=== PATIENT | male | born 1965 | race Caucasian/White ===

== ENCOUNTER → 2016-05-04 | Outpatient (CLI) | payer BC, MEDICAID ==
--- NOTE | 2016-05-04 14:33 | PN ---
DATE OF SERVICE: 05/04/2016 A 51-year-old gentleman who has been followed in the Sleep Center for treatment of obstructive sleep apnea-hypopnea syndrome. During previous visit, I increased pressure in his CPAP unit and because it was some problem with his unit, patient received new CPAP unit. At the present time, he continued to use his CPAP equipment every night for the whole night. No snoring with the machine. He feels well during the day. [place] Sleepiness Scale is 4. He feels that with the new unit he feels much more comfortable and sleeps much better. I checked his CPAP unit. CPAP pressure is 9 cm of water. Therapy hours for 30 days, 6.4 hours average per night. MEDICATIONS: Pravastatin. During physical exam, patient in no distress. BP 131/78, HR 64, RR 16. Weight 252. Temp 97.6, oxygen saturation at room air 98%. HEENT: PERRLA, EOMI. LUNGS: Clear. HEART: S1, S2 regular. ABDOMEN: Obese, soft, nontender. EXTREMITIES: No edema. TACTICAL DECEPTION PLANS OFFICER: No focal deficit. IMPRESSION: 1. Obstructive sleep apnea-hypopnea syndrome on control with CPAP at 9 cm of water. Patient benefiting from the machine, demonstrated great compliance with treatment. 2. Obesity. 3. Hypertension. 4. Hyperlipidemia. 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 6. Some restriction of nasal breathing. PLAN: 1. Continue treatment with CPAP every night for the whole night. 2. Losing weight program. 3. Sleep hygiene with regular time in bed for at least 8 hours. 4. No driving if feeling any sleepiness. 5. Prescription for all necessary CPAP supplies. Thank you very much for allowing me to participate in the management of your patient. A followup visit in one year. Sincerely, Darin Lay MD, PhD, FAASM. Diplomat of [place] [employer], Sleep Medicine Board by [place] [employer] [place] [employer] Manager Plan of [facility] [place]
== END | disposition home or self-care (01) ==
LOC: SLEEP 10:20
PROVIDERS: ATTEND Internal Medicine
DX: G47.33 Obstructive sleep apnea (adult) (pediatric) (principal); E66.9 Obesity, unspecified; I10 Essential (primary) hypertension; E78.5 Hyperlipidemia, unspecified; Z79.899 Other long term (current) drug therapy

== ENCOUNTER → 2016-10-31 | Outpatient (CLI) | payer BC, MEDICAID ==
--- NOTE | 2016-10-31 08:15 | US ---
EXAMINATION TYPE: US abdomen limited DATE OF EXAM: 10/31/2016 COMPARISON: CT abdomen pelvis December 16, 2015 CLINICAL HISTORY: R10.11 rt upper quadrant pain. EXAM MEASUREMENTS: Liver Length: 13.1 cm Gallbladder Wall: 0.2 cm CBD: 0.4 cm Right Kidney: 10.8 x 5.3 x 5.8 cm technically difficult exam, limited vis of left lobe of liver, right lobe difficult to penetrate Pancreas: not well visualized Liver: difficult to penetrate Gallbladder: No stones seen Evidence for sonographic Perea's sign: No CBD: wnl Right Kidney: No hydronephrosis or masses seen Visualized pancreas is unremarkable. Visualized liver is heterogeneous in appearance consistent with diffuse fatty infiltration. 2.5 cm low dense lesion near interlobar fissure felt to reflect thin-wall ed cyst on CT is less well-seen on ultrasound. Gallbladder is identified without shadowing mobile gal lstones, abnormal surrounding fluid, or abnormal gallbladder wall thickening. IMPRESSION: Suboptimal study but no gallstones or ultrasound evidence for acute cholecystitis.
== END | disposition home or self-care (01) ==
LOC: RADUSWWP 06:59
PROVIDERS: ATTEND Student in an Organized Health Care Education/Training Program
DX: R10.11 Right upper quadrant pain (principal)
CPT/HCPCS: 76705

== ENCOUNTER → 2016-11-13 | Outpatient (CLI) | payer BC, MEDICAID ==
--- NOTE | 2016-11-13 08:12 | CT ---
EXAMINATION TYPE: CT abdomen pelvis wo con DATE OF EXAM: 11/13/2016 COMPARISON: 12/16/2015 HISTORY: Abdominal pain CT DLP: 1437.2 mGycm Automated exposure control for dose reduction was used. TECHNIQUE: Helical acquisition of images was performed from the lung bases through the pelvis. FINDINGS: LUNG BASES: No significant abnormality is appreciated. LIVER/GB:2.5 cm fluid attenuating lesion within segment 4 of the left hepatic lobe suggestive of a cy st. PANCREAS: No significant abnormality is seen. SPLEEN: No significant abnormality is seen. ADRENALS: No significant abnormality is seen. KIDNEYS: No significant abnormality is seen. URINARY BLADDER: No significant abnormality is seen. ADENOPATHY: None visualized. OSSEOUS STRUCTURES: Hypertrophic and degenerative change spine. Scoliotic curvature noted. BOWEL: No significant abnormality is seen. OTHER: Aorta of normal caliber. Prostate mildly enlarged. IMPRESSION: STABLE HEPATIC CYST
== END | disposition home or self-care (01) ==
LOC: RADCTMAIN 07:00
PROVIDERS: ATTEND Family Medicine
DX: K76.89 Other specified diseases of liver (principal)
CPT/HCPCS: 74176

== ENCOUNTER → 2016-12-13 | Outpatient (CLI) | payer BC, MEDICAID ==
--- NOTE | 2016-12-14 22:12 | ENG ---
ELECTRONYSTAGMOGRAM REPORT VIDEO-ASSISTED ELECTRONYSTAGMOGRAPHIC REPORT: VNG INDICATIONS: Dizziness with vertigo and lightheadedness starting one month ago, sudden onset, improving in condition. Dizziness comes in spells. Dizziness can be precipitated by positional changes, including rolling over in bed, left or right. Patient denies any difficulty with hearing. She has steady tinnitus in both ears and a fullness in both ears. VNG FINDINGS: SACCADES: Saccades shows intact peak velocities, accuracies and latencies. GAZE TEST: Gaze with fixation shows no nystagmus in any of the directions of gaze, including centrally with vision denied. SINUSOIDAL TRACKING: Tracking shows no breakups. OKN TEST: Opticokinetic nystagmus shows no asymmetries at faster or slower speeds. BAKARI-HALLPIKE TEST: [place]-Hallpike maneuvers are negative bilaterally. POSITION TEST: Static position testing in 6 different positions, both with eyes opened and with vision denied, shows no nystagmus. CALORIC TEST: Caloric testing shows a 33% unilateral left caloric weakness with directional preponderance of 8% right ear and normal fixation index. IMPRESSION: VNG test results are consistent with a well-compensated, mild left vestibulopathy. Other features of testing are unremarkable. MMODL / IJN: [id number] /
== END ==
LOC: NEUROMAIN 08:51
PROVIDERS: ATTEND Otolaryngology
DX: R42 Dizziness and giddiness (principal)
CPT/HCPCS: 92537; 92540

== ENCOUNTER → 2018-05-09 | Outpatient (CLI) | payer BC, MEDICAID ==
--- NOTE | 2018-05-09 11:05 | SFUN ---
SLEEP CENTER FOLLOW UP NOTE DATE OF SERVICE: 05/09/2018 This 53-year-old gentleman had been followed up in sleep center for treatment of obstructive sleep apnea-hypopnea syndrome. Patient successfully continuing to use his CPAP equipment every night without significant problems related to mask fitting, pressure or humidifications. No snoring during the sleep. [place] Sleepiness Scale is 4. I checked his CPAP unit. CPAP pressure 9 cm of water. Usage is 100% of the time more than 4 hours. Average usage is 7.8 hours per night. Mask fitting 99% according to reading from the machine. Apnea-hypopnea index 3.8, which is normal range. MEDICATIONS: Pravastatin. PHYSICAL EXAMINATION: During physical exam, patient in no distress. VITAL SIGNS: BP 144/96, HR 60, RR 16, height 5 feet 4 inches, weight 252 pounds, body mass index 43.2, temperature 97.5, oxygen saturation at room air 98%. HEENT: PERRLA, EOMI. Oropharynx low position of soft palate. NECK: Supple, no JVD. Thyroid is not palpable. LUNGS: Clear to percussion and to auscultation. Good air exchange. No wheezing or rhonchi. HEART: S1, S2 regular. No murmurs, gallops, or rubs. ABDOMEN: Obese. EXTREMITIES: No clubbing or cyanosis. SACK REPAIRER: Awake, alert, and oriented X3. Cranial nerves 2 to 7 intact. There is no fasciculation or atrophy. noted. No focal deficits observed. IMPRESSION: 1. Obstructive sleep apnea-hypopnea syndrome. The patient demonstrated 100% compliance with treatment benefitting from treatment normal aspiration on the pressure at 9 cm of water. 2. Obesity. 3. Hyperlipidemia. 4. History of hypertension. PLAN: 1. Patient will continue to use CPAP equipment every night for the whole night with the same pressure. 2. Continue losing weight. 3. Sleep hygiene with regular time in bed for 7-1/2 to 8 hours. 4. No driving if feeling sleepiness. 5. I will maintain all necessary prescription for CPAP supplies including mask, tube, filters. 6. Followup visit in 1 year or earlier if patient has any problems. Thank you very much for allowing me to participate in management of your patient. Sincerely, Darin Lay MD, PhD, FAASM Diplomat of [place] [employer] [place] [employer] Medicine Board Certified Arts Therapist of [facility] [place] MMBARTOLOL / IRENEN: [id number] /
== END ==
LOC: SLEEP 09:56
PROVIDERS: ATTEND Internal Medicine
DX: G47.33 Obstructive sleep apnea (adult) (pediatric) (principal); E66.9 Obesity, unspecified; E78.5 Hyperlipidemia, unspecified; I10 Essential (primary) hypertension; Z99.89 Dependence on other enabling machines and devices; Z79.899 Other long term (current) drug therapy

== ENCOUNTER → 2020-10-04 | Outpatient (CLI) | payer BC | END | disposition home or self-care (01) | LOC: RADCTMAIN 06:03 | PROVIDERS: ATTEND Neurological Surgery | DX: Z53.9 Procedure and treatment not carried out, unspecified reason (principal) ==

== ENCOUNTER → 2020-10-04 | Outpatient (CLI) | payer BC ==
--- NOTE | 2020-10-04 08:53 | CT ---
EXAMINATION TYPE: CT lumbar spine wo con DATE OF EXAM: 10/04/2020 6:40 AM COMPARISON: None HISTORY: Patient having low back pain for years.No injury CT DLP: 1783.5 mGycm Automated exposure control for dose reduction was used. Unenhanced CT of the lumbar spine was performed. Bone and soft tissue window settings are submitted as well as coronal and sagittal reconstructions. L1-L2: Normal disc space height. No disc herniation protrusion or central stenosis. No facet joint arthropathy. No evidence for foraminal encroachment. L2-L3: Normal disc space height. No disc herniation protrusion or central stenosis. No facet joint arthropathy. No evidence for foraminal encroachment. L3-L4: Moderate disc desiccation posterior disc bulge with effacement ventral thecal sac. Mild centra l stenosis. Mild foraminal encroachment. L4-L5: Grade 1 anterolisthesis L4 and L5-3 millimeters. Moderate disc desiccation with posterior disc bulge. Hypertrophy ligamentum flavum and facet joint arthropathy contribute to moderate central sten osis. Vacuum changes of the facet joints. L5-S1: Moderate disc desiccation. Mild posterior disc bulge. Right lateral recess stenosis. No centra l stenosis or disc herniation. Left greater than right foraminal encroachment IMPRESSION: Multilevel degenerative disc disease and central stenosis as noted above.
--- NOTE | 2020-10-05 04:04 | MR ---
EXAMINATION TYPE: MR lumbar spine wo con DATE OF EXAM: 10/04/2020 COMPARISON: None HISTORY: Low back pain into buttocks Multiplanar multiecho imaging of the lumbar spine without contrast. Vertebra have fairly normal alignment. There is mild decreased signal and narrowing in the disks from L1 to 2 S1. There is no compression fracture. There is mild posterior disc bulging at L3-4 L4-5. The re is hypertrophic facet arthropathy at L4-5. There is resultant moderate spinal stenosis. There is d evelopmentally small spinal canal. Lumbar nerve roots appear intact. There is no lumbar paraspinal ma ss. There is no compression fracture. I see no focal bone destruction. Sacroiliac joints are intact. There is bilateral L4-5 neural foraminal narrowing due to the disc space narrowing and facet arthropa thy. IMPRESSION: Posterior central mild disc herniation at L4-5. L4-5 facet arthropathy and mild to moderate spinal st enosis. No fracture. Minimal posterior disc bulge at L3-4.
== END | disposition home or self-care (01) ==
LOC: RADMRIMAIN 06:09
PROVIDERS: ATTEND Neurological Surgery
DX: M48.061 Spinal stenosis, lumbar region without neurogenic claudication (principal); M51.16 Intervertebral disc disorders with radiculopathy, lumbar region; M47.26 Other spondylosis with radiculopathy, lumbar region; M99.73 Connective tissue and disc stenosis of intervertebral foramina of lumbar region
CPT/HCPCS: 72131; 72148

== ENCOUNTER → 2021-01-26 | Outpatient (CLI) | payer BC ==
--- NOTE | 2021-01-26 14:05 | SFUN ---
SLEEP CENTER FOLLOW UP NOTE DATE OF SERVICE: 01/26/2021 55-year-old gentleman has been followed in Sleep Center for treatment of obstructive sleep apnea-hypopnea syndrome. Previously I saw patient in April of 2018 close to 3 years. Patient continued to use his CPAP equipment every night. Recently, he received a letter from [employer] that his machine was on recall. He stopped using it for 2 weeks but feels worse and restarted to using it again. [place] Sleepiness Scale today is 6, which is normal. I checked his CPAP unit, pressure is 9 cm of water. Mask fit 100%. Average usage 5.6 hours per night. The patient has good compliance. Apnea-hypopnea index 3.5, which is normal. MEDICATIONS: Losartan 100 mg once a day, pravastatin 40 mg once every other day. PHYSICAL EXAMINATION: GENERAL: Patient in no distress. BP 140/91, HR 66, RR 15, height 5 feet 3-3/4 inches, weight 247.4 pounds, body mass index 42.7. The patient lost about 5 pounds since previous visit. Temperature 97.7, oxygen saturation at room air 97%. Oropharynx: Low position of soft palate. NECK: Supple, no JVD. Thyroid is not palpable. LUNGS: Clear to percussion and to auscultation. Good air exchange. No wheezing or rhonchi. HEART: S1, S2 regular. No murmurs, gallops, or rubs. ABDOMEN: Obese. Soft and nontender. Bowel sounds are present. No organomegaly appreciated. EXTREMITIES: No clubbing or cyanosis. INTERACTIVE PRODUCER: Awake, alert, and oriented X3. Cranial nerves 2 to 7 intact. There is no fasciculation or atrophy. noted. No focal deficits observed. IMPRESSION: 1. Obstructive sleep apnea-hypopnea syndrome. Patient demonstrated good compliance with treatment, benefitting from treatment. The patient has a [facility] 1 CPAP unit which was on recall. When patient stopped using CPAP equipment, he feels worse. 2. Obesity. 3. Hyperlipidemia. 4. Hypertension. PLAN: 1. Prescription to replace CPAP unit was written and faxed. A prescription for all necessary CPAP supplies. 2. Patient will continue to use PAP equipment every night for the whole night. 3. Sleep hygiene with regular time in bed for at least 7-1/2 to 8 hours. 4. Precautions related to driving. No driving if feeling sleepiness. 5. I will maintain all necessary prescription for PAP supplies including mask, tube, filters. 6. Watching weight. 7. Follow-up visit in 6 months or earlier if patient has any problems. Thank you very much for allowing me to participate in the management of your patient. Sincerely, Darin Lay MD, PhD, FAASM Diplomat of [place] [employer] Specialties Sleep Medicine Board of [place] Board of Internal Medicine Hospital Laboratory Technician of [facility] [place] MMODL / IRENEN: [id number] /
== END ==
LOC: SLEEP 11:48
PROVIDERS: ATTEND Internal Medicine
DX: G47.33 Obstructive sleep apnea (adult) (pediatric) (principal); E66.9 Obesity, unspecified; E78.5 Hyperlipidemia, unspecified; I10 Essential (primary) hypertension; Z99.89 Dependence on other enabling machines and devices; Z68.41 Body mass index [BMI] 40.0-44.9, adult; Z79.899 Other long term (current) drug therapy

== ENCOUNTER → 2021-05-09 | Outpatient (CLI) | payer BC ==
--- NOTE | 2021-05-09 11:23 | MR ---
EXAMINATION TYPE: MR knee LT wo con DATE OF EXAM: 05/09/2021 COMPARISON: None HISTORY: Lt knee pain TECHNIQUE: Multiplanar, multisequence imaging of the left knee is performed without IV contrast. FINDINGS: Diffuse marrow edema involving the medial tibial plateau. There is subtle linear area of ab normal signal involving the medial tibial no suspicious for a minimally depressed medial tibial plate au fracture. Arthropathy is incidentally noted. Involving the tricompartment joint spaces is incidentally noted. T here is subcutaneous soft tissue edema. There is a large popliteal fossa cyst measuring 4.2 x 2 x 6 c m. Anterior cruciate and posterior cruciate ligaments are intact. Medial collateral and lateral collater al ligaments intact. The lateral meniscus has a normal appearance. There is a grade 3 abnormal signal involving the supervisor personnel clerks ior horn and body of the medial meniscus compatible with tear. There is fibrillation and chondromalacia involving the articular portion of the medial femur. Patellar and quadriceps tendons intact. There is thinning of the patellar cartilage compatible with c hondromalacia and there is a tremendous amount of fluid in the suprapatellar bursa. Edema in Hoffa's fat pad suggests possibility of fat pad impingement syndrome. IMPRESSION: 1. Diffuse marrow edema involving the medial tibial plateau compatible with marrow edema. Suggestion of subtle depression of the medial margin of the tibial cortex and on the T1 image of a linear fractu re. Correlate clinically. 2. Posterior horn and body medial meniscal tear. 3. Large 6 cm popliteal fossa cyst. 4. Correlate for fat pad impingement syndrome.
== END | disposition home or self-care (01) ==
LOC: RADMRIMAIN 10:16
PROVIDERS: ATTEND Family Medicine
DX: M23.322 Other meniscus derangements, posterior horn of medial meniscus, left knee (principal); M71.22 Synovial cyst of popliteal space [Baker], left knee

== ENCOUNTER → 2021-05-16 | Outpatient (CLI) | payer BC | END | disposition home or self-care (01) | LOC: LABWHC1 10:46 | PROVIDERS: ATTEND Orthopaedic Surgery | DX: M23.332 Other meniscus derangements, other medial meniscus, left knee (principal); E55.9 Vitamin D deficiency, unspecified | CPT/HCPCS: 36415; 82306 ==

== ENCOUNTER → 2021-07-15 | Outpatient (CLI) | payer BC | END | disposition home or self-care (01) | LOC: LABWHC1 10:14 | PROVIDERS: ATTEND Orthopaedic Surgery | DX: M23.332 Other meniscus derangements, other medial meniscus, left knee (principal); M84.362D Stress fracture, left tibia, subsequent encounter for fracture with routine healing | CPT/HCPCS: 36415; 82306 ==

== ENCOUNTER → 2022-01-30 | Outpatient (CLI) | payer BC ==
--- NOTE | 2022-01-30 10:17 | NM ---
EXAMINATION TYPE: NM hepatobiliary w EF DATE OF EXAM: 01/30/2022 COMPARISON: Nuclear medicine HIDA scan 12/21/2015, abdominal ultrasound 10/31/2016. HISTORY: R10.11 RUQ pain TECHNIQUE: After the intravenous administration of 4.9 mCi Tc 99m Mebrofenin hepatobiliary scintigrap hy is performed. Immediate images post injection. FINDINGS: There is satisfactory initial accumulation of tracer by the liver. The gallbladder is visualized wit hin 30 minutes. The small bowel activity is noted within 10 minutes. At one hour 8 ounces of oral e nsure plus is given to mimic CCK and gallbladder ejection fraction is calculated at 62 %, in the norm al range. Therefore there is no scintigraphic evidence of cystic or common bile duct obstruction to suggest acute cholecystitis or gallbladder dyskinesia. IMPRESSION: Exam is within normal limits.
== END | disposition home or self-care (01) ==
LOC: RADNMMAIN 06:55
PROVIDERS: ATTEND Family Medicine
DX: R10.11 Right upper quadrant pain (principal)
CPT/HCPCS: 78226; A9537

== ENCOUNTER → 2022-03-09 | Outpatient (CLI) | payer BC ==
--- NOTE | 2022-03-09 11:36 | P.PN ---
Subjective DATE: 03/09/2022 FOLLOW UP VISIT. Patient with obstructive sleep apnea hypopnea syndrome return to sleep center for follow-up visit. Information from previous visit have been reviewed. Patient received new CPAP unit and this is first visit after he started to use new CPAP equipment. Patient is using PAP equipment every night for the whole night, getting PAP supplies in time. The patient does not have significant problems with the mask, PAP unit and humidification. [place] sleepiness scale is 6, which is normal. I checked information from PAP unit. PAP unit pressure 9 cm H2O. Usage is 70 % for more then 4 hours. Leak is 8 l/m, which is in acceptable range. Apnea Hypopnea Index is 2.7, which is normal. MEDICATIONS:1. Losartan 100 mg once a day 2. Pravastatin 40 mg once a day 3. Hydrochlorothiazide 25 mg once a day 4. Amlodipine 5 mg once a day During physical exam: GENERAL: A pleasant patient without any distress. VITAL SIGNS: BP 128 over 85, HR 78, RR 16, weight 257, temperature 98.0, oxygen saturation at room air 98 % . HEENT: PERRLA, EOMI.low position of soft palate, Mallapati 3 . NECK: Supple. No JVD. LUNGS: Clear to percussion and to auscultation. Good air exchange. No wheezing or rhonchi. HEART: S1, S2 regular. ABDOMEN: Soft and nontender. Obese EXTREMITIES: No clubbing or cyanosis. TAPER PRINTED CIRCUIT LAYOUT: Awake, alert, and oriented x3. No focal deficit. Impressions: 1. Obstructive sleep apnea-hypopnea syndrome. Patient demonstrated good compliance with treatment, benefiting from treatment. 2. Obesity, body mass index 44.9. 3. Hypertension. 4. Hyperlipidemia. Plan: 1. Continue using PAP equipment every night for the whole night. 2. To change air filter at least 1-2 times per month. 3. PAP unit should stay lower then position of the head. 4. Advised patient to remove all remaining water from humidifier canister daily and make it dry after each usage. Refill canister with fresh distilled water before each usage. 5. Sleep hygiene with regular time in bed for at least 8 hours. 6. Precautions related to driving. No driving if feel any sleepiness. 7. I will maintain prescription for PAP supplies including mask, tube, filters. 8. Follow up visit in 6 months or earlier if patient has any problems. 9. Watching and losing weight. Thank you very much for allowing me to participate in the management of your patient. Darin Lay MD, PhD, FAASM. Diplomat of [place] [employer] Sleep [employer], Sleep Medicine Board by [place] [employer] Medicine Public Health Outreach Worker of [facility] [place]
== END ==
LOC: SLEEP 10:53
PROVIDERS: ATTEND Internal Medicine
DX: G47.33 Obstructive sleep apnea (adult) (pediatric) (principal); Z99.89 Dependence on other enabling machines and devices; E66.9 Obesity, unspecified; Z68.41 Body mass index [BMI] 40.0-44.9, adult; I10 Essential (primary) hypertension; E78.5 Hyperlipidemia, unspecified; Z79.899 Other long term (current) drug therapy
CPT/HCPCS: 99212

== ENCOUNTER → 2022-10-04 | Outpatient (CLI) | payer BC ==
--- NOTE | 2022-10-04 11:47 | P.PN ---
Subjective DATE: 10/04/2022 FOLLOW UP VISIT. Patient with obstructive sleep apnea hypopnea syndrome return to sleep center for follow-up visit. Information from previous visit have been reviewed. Patient is using PAP equipment every night for the whole night, getting PAP supplies in time. The patient does not have significant problems with the mask, PAP unit and humidification. [place] sleepiness scale is 7, which is normal. I checked information from PAP unit. PAP unit pressure 9 cm H2O. Usage is 80 % for more then 4 hours, average 6.4 hours per night. Mask feet 100%. Apnea Hypopnea Index is slightly increased to 6.4, it was 2.7 during previous visit . MEDICATIONS:1. Pravastatin 40 mg once a day 2. Hydrochlorothiazide 25 mg once a day 3. Amlodipine 5 mg once a day 4. Losartan 100 mg once a day During physical exam: GENERAL: A pleasant patient without any distress. VITAL SIGNS: BP 109/74, HR 68, RR 12 , weight 263.4, temperature 97.3, oxygen saturation at room air 98 % . HEENT: PERRLA, EOMI.low position of soft palate, Mallapati 3 . NECK: Supple. No JVD. LUNGS: Clear to percussion and to auscultation. Good air exchange. No wheezing or rhonchi. HEART: S1, S2 regular. ABDOMEN: Soft and nontender. Obese EXTREMITIES: No clubbing or cyanosis. APPLICATIONS SUPPORT ENGINEER: Awake, alert, and oriented x3. No focal deficit. Impressions: 1. Obstructive sleep apnea-hypopnea syndrome. Patient demonstrated great compliance with treatment, benefiting from treatment. 2. Obesity, BMI 46.5, patient increased weight and 6 pounds comparing with previous visit. 3. Hypertension. 4. Hyperlipidemia. Plan: 1. Continue using PAP equipment every night for the whole night. I increased level of CPAP pressure to 11 cm of water. 2. To change air filter at least 1-2 times per month. 3. PAP unit should stay lower then position of the head. 4. Advised patient to remove all remaining water from humidifier canister daily and make it dry after each usage. Refill canister with fresh distilled water before each usage. 5. Sleep hygiene with regular time in bed for at least 8 hours. 6. Precautions related to driving. No driving if feel any sleepiness. 7. I will maintain prescription for PAP supplies including mask, tube, filters. 8. Follow up visit in 6 months or earlier if patient has any problems. 9. Watching weight. Thank you very much for allowing me to participate in the management of your patient. Darin Lay MD, PhD, FAASM. Diplomat of [place] [employer], Sleep Medicine Board by [place] [employer] Pasta Maker of [facility] [place]
== END ==
LOC: 3 N SLEEP 10:20
PROVIDERS: ATTEND Internal Medicine
DX: G47.33 Obstructive sleep apnea (adult) (pediatric) (principal); E66.9 Obesity, unspecified; I10 Essential (primary) hypertension; E78.5 Hyperlipidemia, unspecified; Z68.42 Body mass index [BMI] 45.0-49.9, adult; Z99.89 Dependence on other enabling machines and devices
CPT/HCPCS: 99212

== ENCOUNTER → 2023-04-11 | Outpatient (CLI) | payer BC ==
--- NOTE | 2023-04-11 10:53 | P.PN ---
Subjective DATE: 04/11/2023 FOLLOW UP VISIT. Patient with obstructive sleep apnea hypopnea syndrome return to sleep center for follow-up visit. Information from previous visit have been reviewed. Patient is using PAP equipment every night for the whole night, getting PAP supplies in time. The patient does not have significant problems with the mask, PAP unit and humidification. [place] sleepiness scale is 1, which is perfect. I checked information from PAP unit. PAP unit pressure 9 cm H2O. Usage is 100% for more then 4 hours, average 8.5 hours per night. Leak is 7.1 l/m, which is in acceptable range. Apnea Hypopnea Index is 3.2, which is normal. MEDICATIONS:1. Losartan 100 mg once a day 2. Hydrochlorothiazide 25 mg once a day 3. Amlodipine 5 mg once a day 4. Gabapentin 5. Pravastatin 40 mg once a day During physical exam: GENERAL: A pleasant patient without any distress. VITAL SIGNS: BP 108/73, HR 67, RR 12 , weight 234.6, temperature 97.5, oxygen saturation at room air 99 % . HEENT: PERRLA, EOMI.low position of soft palate, Mallapati 3 . NECK: Supple. No JVD. LUNGS: Clear to percussion and to auscultation. Good air exchange. No wheezing or rhonchi. HEART: S1, S2 regular. ABDOMEN: Soft and nontender.[] EXTREMITIES: No clubbing or cyanosis. HOG COOLER: Awake, alert, and oriented x3. No focal deficit. Impressions: 1. Obstructive sleep apnea-hypopnea syndrome. Patient demonstrated great compliance with treatment, benefiting from treatment. 2. Obesity, BMI 39.5, patient lost 29 pounds comparing his previous visit. 3. Hypertension. 4. Hyperlipidemia. Plan: 1. Continue using PAP equipment every night for the whole night. 2. To change air filter at least 1-2 times per month. 3. PAP unit should stay lower then position of the head. 4. Advised patient to remove all remaining water from humidifier canister daily and make it dry after each usage. Refill canister with fresh distilled water before each usage. 5. Sleep hygiene with regular time in bed for at least 8 hours. 6. Precautions related to driving. No driving if feel any sleepiness. 7. I will maintain prescription for PAP supplies including mask, tube, filters. 8. Follow up visit in 6 months or earlier if patient has any problems. 9. Watching and continue losing weight. Thank you very much for allowing me to participate in the management of your patient. Darin Lay MD, PhD, FAASM. Diplomat of [place] [employer] Medicine, Sleep Medicine Board by [place] [employer] Product Support Analyst of [facility] [place]
== END ==
LOC: 3 N SLEEP 10:06
PROVIDERS: ATTEND Internal Medicine
DX: G47.33 Obstructive sleep apnea (adult) (pediatric) (principal); E66.9 Obesity, unspecified; E78.5 Hyperlipidemia, unspecified; I10 Essential (primary) hypertension; Z68.39 Body mass index [BMI] 39.0-39.9, adult; Z79.899 Other long term (current) drug therapy; Z99.89 Dependence on other enabling machines and devices
CPT/HCPCS: 99212

== ENCOUNTER → 2024-03-27 | Outpatient (CLI) | payer BC ==
[2024-03-27 11:27] VITALS: BP 98/64; PULSE 72; RESP 16; TEMP 97.7
--- NOTE | 2024-03-27 12:00 | P.PROGSL ---
Subjective DATE: 03/27/2024 FOLLOW UP VISIT. Patient with obstructive sleep apnea hypopnea syndrome return to sleep center for follow-up visit. Information from previous visit have been reviewed. Patient is using PAP equipment every night for the whole night, getting PAP supplies in time. The patient does not have significant problems with the mask, PAP unit and humidification. [place] sleepiness scale is 2, which is normal. I checked information from PAP unit. PAP unit pressure 9 cm H2O. Usage is 90% for more then 4 hours, average 7.9 hours per night. Leak is 10 l/m, which is in acceptable range. Apnea Hypopnea Index is 3.5, which is normal. MEDICATIONS : Hydrochlorothiazide, losartan, sertraline, phentermine, pravastatin, Zepbound. During physical exam: GENERAL: A pleasant patient without any distress. VITAL SIGNS: Please see below, weight is 367 lbs. HEENT: PERRLA, EOMI.low position of soft palate, Mallapati 3 . NECK: Supple. No JVD. LUNGS: Clear to percussion and to auscultation. Good air exchange. No wheezing or rhonchi. HEART: S1, S2 regular. ABDOMEN: Soft and nontender.[] EXTREMITIES: No clubbing or cyanosis. WOOD MILLER: Awake, alert, and oriented x3. No focal deficit. Impressions: 1. Obstructive sleep apnea-hypopnea syndrome. Patient demonstrated great compliance with treatment, benefiting from treatment. 2. Obesity. 3. History of hypertension. 4. Hyperlipidemia. Plan: 1. Continue using PAP equipment every night for the whole night. 2. Sleep hygiene with regular time in bed for at least 7.5-8 hours 3. PAP unit should stay lower then position of the head. 4. Advised patient to remove all remaining water from humidifier canister daily and make it dry after each usage. Refill canister with fresh distilled water before each usage. 5. Watching weight. 6. Precautions related to driving. No driving if feel any sleepiness. 7. I will maintain prescription for PAP supplies including mask, tube, filters. 8. Follow up visit in 8 months or earlier if patient has any problems. Thank you very much for allowing me to participate in the management of your patient. Darin Lay MD, PhD, FAASM. Diplomat of [employer], Sleep Medicine Board by [employer] Residency Coordinator of [facility] [place] Objective - Vital Signs Vital Signs: Vital Signs Temp 97.7 F 03/27/24 11:22 Pulse 72 03/27/24 11:22 Resp 16 03/27/24 11:22 BP 98/64 03/27/24 11:22 Pulse Ox 98 03/27/24 11:22 FiO2
== END ==
LOC: 3 N SLEEP 10:46
PROVIDERS: ATTEND Internal Medicine
DX: G47.33 Obstructive sleep apnea (adult) (pediatric) (principal); E66.01 Morbid (severe) obesity due to excess calories; E78.5 Hyperlipidemia, unspecified; Z86.79 Personal history of other diseases of the circulatory system
CPT/HCPCS: 99212